=== PATIENT | female | born 1995 | race Caucasian/White ===

== ENCOUNTER → 2018-08-30 | Outpatient (CLI) | payer OTHER ==
--- NOTE | 2018-08-30 16:23 | XR ---
EXAMINATION TYPE: XR wrist complete RT DATE OF EXAM: 08/30/2018 COMPARISON: 03/31/1999 HISTORY: Right wrist pain TECHNIQUE: Three-view right wrist FINDINGS: No acute fractures are evident. Joint spaces are preserved. Soft tissues appear normal. Sca pholunate space measures 0.3 cm. Follow-up exams can be performed 7-10 days from acute trauma for continued pain. If there is pain at the anatomic snuff box nuclear medicine bone scan could be performed. If there is continued pain, con gill box operator MRI for additional evaluation of soft tissues. IMPRESSION: 1. No acute osseous abnormality radiographically apparent.
== END | disposition home or self-care (01) ==
LOC: RADXRYALE 11:56
PROVIDERS: ATTEND Family Medicine
DX: M25.531 Pain in right wrist (principal)